=== PATIENT | female | born 1990 | race Caucasian/White ===

== ENCOUNTER 2017-12-21 11:37 | Emergency (ER) | payer MEDICARE, OTHER | END 2017-12-21 12:55 | disposition home or self-care (01) | LOC: FTE 11:37 | DX: S50.11XA Contusion of right forearm, initial encounter (principal); S10.91XA Abrasion of unspecified part of neck, initial encounter; V49.50XA Passenger injured in collision with unspecified motor vehicles in traffic accident, initial encounter | CPT/HCPCS: 99283 ==